=== PATIENT | female | born 2000 | race Caucasian/White ===

== ENCOUNTER 2022-07-01 12:43 | Inpatient (IN) ==
--- NOTE | 2022-07-01 13:49 | History & Physical Report ---
Date of Service July 01, 2022 Assessment & Plan (1) Post-dates : Plan: monitor History of Present Illness Chief Complaint: prolonged monitoring for variable deceleration in office. BPP 03/11 Primary Care Provider: Oscar Estrada DO 22 F P0000 at40.6 weeks seen in L&D after NST showed 1 variable and BPP 03/11. Allergies Allergy/AdvReac Type Severity Reaction Status Date / Time No Known Allergies Allergy Verified 03/26/22 19:45 Home Medications Medication Instructions Recorded Confirmed Type lorazepam 0.5 mg tablet (Ativan) 0.5 mg PO BID PRN anxiety #10 tabs 10/17/20 03/26/22 Rx escitalopram oxalate 10 mg tablet 10 mg PO DAILY 03/26/22 03/26/22 History iron,carbonyl 65 mg-vitamin C 125 1 tab PO TID 03/26/22 03/26/22 History mg tablet,delayed release (Vitron-C) Patient History Medical History Anxiety Third trimester Family History Other Family history non-contributory Social History Smoking Status: Never smoker Feels Safe at Home: Yes OB History primip TAPPER BIT History neg Review of Systems All systems reviewed & are unremarkable except as noted in HPI & below Physical Exam Constitutional: WD/WN, vitals as above Eyes: PERRL, conjunctivae normal, anicteric sclerae Neck: trachea midline, no thyromegaly Cardiovascular: RRR, no murmur, no edema Gastrointestinal (Abdomen): normal bowel sounds, soft, nontender, no hepatosplenomegaly Inspection/Auscultation: abdomen normal to inspection Skin: no rashes, warm and dry Neurologic: patellar DTR's 2+ bilat, sensation intact Psychiatric: A+Ox3, euthymic affect Genitourinary: normal external appearance OB Exam Abdomen: + fundal height and + vertex Manual OB Exam: + cervical dilation 1 cm, + cervical effacement 50% and + station high OB Exam Monitor Tracing: + external FHT monitor used, + external uterine monitor used, + category I and + normal FHT variability Results & Data ([place]) Vital Signs (Past 12 Hours) Vital Signs Pulse BP 07/01/22 13:03 85 105/72 Code Status & VTE Plan VTE Prophylaxis Plan VTE Prophylaxis will be ordered: No Monitoring External Monitor Cat 1 with irregular contractions
[2022-07-01] MEDS ORDERED: LIDOCAINE 1% LOCAL 20 ML VIAL INFIL PRN (16:53)
[2022-07-01] MEDS ORDERED: OXYTOCIN 30 UNITS/500 ML BAG IV PRN (16:53)
[2022-07-01 17:24] LABS: Hematocrit (blood only) 38.8 % (34.1-44.9); Hemoglobin 13.7 g/dl (12.0-16.0); Mean Corpuscular Hemoglobin 33.2 pg (25.0-34.0); Mean Corpuscular Hgb Conc 35.3 g/dL (32.0-36.0); Mean Corpuscular Volume 93.9 fL (80.0-100.0); Mean Platelet Volume 8.8 fL (9.4-12.3); Platelet Count 224 K/uL (130-400); RDW Coefficient of Variation 13.2 % (11.5-14.5); RDW Standard Deviation 45.9 fL (36.4-46.3); Red Blood Count 4.13 M/uL (3.93-5.22); White Blood Count 11.74 K/ul (4.8-10.8)
[2022-07-01] MEDS ORDERED: DINOPROSTONE 10 MG INSERT PV ONE (19:31)
--- NOTE | 2022-07-01 20:06 | Labor Progress Brief Note ---
Date of Service July 01, 2022 Assessment & Plan Admission and Anticipated Discharge Date Admission Date: July 01, 2022 Physical Exam Genitourinary: Manual OB Exam: + cervical dilation fingertip, + cervical effacement 50% and + station high OB Exam Monitor Tracing: + external FHT monitor used, + external uterine monitor used, + category I and + normal FHT variability Cervidil 10 mg placed vaginally to ripen cervix Results & Data ([facility]) Vital Signs (Past 12 Hours) Vital Signs Temp Pulse Resp BP 07/01/22 15:12 36.9 C 20 07/01/22 19:15 18 07/01/22 19:15 37.1 C 18 07/01/22 17:22 82 07/01/22 17:22 112/71 07/01/22 13:03 85 105/72
[2022-07-01] MEDS: ESCITALOPRAM OXALATE 10 MG TAB PO SCH (20:57)
[2022-07-02] MEDS ORDERED: ACETAMINOPHEN 325 MG TAB PO PRN (00:23)
[2022-07-02] MEDS ORDERED: ACETAMINOPHEN 325 MG TAB ONE (00:59)
[2022-07-02] MEDS ORDERED: BUTORPHANOL TARTRATE 1 MG/ML VIAL IV ONE (03:26)
[2022-07-02] MEDS: LACTATED RINGER'S 1,000 ML IV PRN ×2 (03:50→13:56)
[2022-07-02] MEDS ORDERED: OXYTOCIN 30 UNITS/500 ML BAG IV PRN (09:29)
[2022-07-02] MEDS ORDERED: ePHEDrine sulfate 50 MG/ML AMP ONE (09:34)
[2022-07-02] MEDS ORDERED: fentaNYL 2MCG/ML ROPIVACAINE 1.25MG/ML 100 ML BAG EPI ONE (09:35)
[2022-07-02] MEDS ORDERED: SODIUM CHLORIDE 0.9% INJ 10 ML VIAL ONE (09:35)
[2022-07-02] MEDS ORDERED: fentaNYL citrate 100 MCG/2 ML VIAL ONE ×2 (09:35→20:00)
[2022-07-02] MEDS ORDERED: BUPIVACAINE 0.25% 30 ML VIAL ONE (09:35)
[2022-07-02] MEDS ORDERED: LIDOCAINE 2%/EPINEPHRINE 1:200,000 20 ML SDV ONE ×2 (09:35→20:00)
--- NOTE | 2022-07-02 09:36 | Obstetrical Progress Note ---
Date of Service July 02, 2022 Assessment & Plan Admission and Anticipated Discharge Date Admission Date: July 01, 2022 Subjective Patient is seen and examined. She was admitted by Dr. Mesa yesterday for induction of labor for postdates and heart rate deceleration noted on NST. She has received Cervidil for cervical ripening which came out around 3:30 AM when she was [facility]. Amniotic fluid was clear initially but then noted to have light meconium. She has been feeling contractions regularly and they are getting painful. She desires epidural for pain. Reviewed her medical history, medications, [employer] history, both from office records and confirmed with her. She has a history of general anxiety disorder for which she takes Lexapro once a day, history of anemia for which she has taken IV iron therapy. Denies history of smoking, alcohol or drug use. Denies history of STDs including chlamydia gonorrhea herpes. Vital signs stable afebrile, Abdomen soft nontender, gravid [place] 7 to 8 pounds, Cervix is 3 cm dilated, 60% effaced, head at -2 station, heart rate category 1, [place] showing contractions every 3 to 4 minutes. Plan to monitor, epidural for pain, augment with low-dose Pitocin, All questions were answered. Results & Data ([facility]) Vital Signs (Past 12 Hours) Vital Signs Temp Pulse Resp BP 07/02/22 07:04 36.9 C 82 20 110/70 07/02/22 05:40 82 101/56 L 07/02/22 05:11 78 117/66 07/02/22 04:40 95 H 130/81 07/02/22 04:11 112 H 120/59 L 07/02/22 03:30 18 07/02/22 03:30 36.9 C 18 07/02/22 03:40 83 114/64 07/01/22 23:37 88 07/01/22 23:37 128/81
[2022-07-02] MEDS ORDERED: fentaNYL 2MCG/ML ROPIVACAINE 1.25MG/ML 100 ML BAG EPI PRN (09:51)
[2022-07-02] MEDS ORDERED: diphenhydrAMINE 50 MG/ML VIAL IV PRN ×2 (09:51→20:15)
[2022-07-02] MEDS ORDERED: NALBUPHINE HCL INJ 10 MG/ML AMP IV PRN ×2 (09:51→20:15)
[2022-07-02] MEDS ORDERED: ePHEDrine sulfate 50 MG/ML AMP IV PRN ×2 (09:51→20:15)
[2022-07-02] MEDS ORDERED: NALOXONE HCL 1 MG in SODIUM CHLORIDE 0.9% 1000ML 1,000 ML IV PRN ×2 (09:51→20:15)
[2022-07-02] MEDS ORDERED: ONDANSETRON INJ 2 MG/ML 2 ML VIAL IV PRN ×2 (09:51→20:15)
[2022-07-02] MEDS ORDERED: NALOXONE HCL 0.4 MG/1 ML VIAL/CARP IV PRN ×2 (09:51→20:15)
--- NOTE | 2022-07-02 09:55 | Anesthesiology Consultation ---
Date of Service July 02, 2022 Assessment & Plan Chart Review Chart Review: Patient NOT seen in Pre Admission Testing and Acceptable Risk for Labor Epidural Consults Requested none ASA ASA2 Proposed Anesthesia Anesthesia Type: Labor Epidural and CSE Risk / Benefits Reviewed With: PT / POA / Parent / Guardian, Accepts Plan and Informed Consent Obtained History Height/Weight Weight: 72.575 kg Allergies Allergy/AdvReac Type Severity Reaction Status Date / Time No Known Allergies Allergy Verified 07/01/22 17:37 Medications Home Medications Medication Instructions Recorded Confirmed Last Taken escitalopram oxalate 10 mg tablet 10 mg PO DAILY 03/26/22 07/01/22 06/30/22 21:00 prenat.vits,lane,xrj-nyqp-bqddg 1 tab PO DAILY 07/01/22 07/01/22 06/30/22 21:00 Active Medications Generic Name Dose Route Start Last Admin Trade Name Freq PRN Reason Stop Dose Admin Escitalopram Oxalate 10 mg 07/01/22 21:00 07/01/22 20:57 Escitalopram Oxalate 10 Mg Tab PO 07/31/22 20:59 10 mg 2100 RADHA Administration Lactated Ringer's 1,000 mls @ 125 mls/hr 07/01/22 16:53 07/02/22 04:20 Lr IV 07/03/22 16:52 125 mls/hr .Q8H PRN Infusion L&D Protocol Protocol NPO Date Last Intake of Fluids: 07/02/22 Time Last Intake of Fluids: 09:00 Date Last Intake of Solids: 07/02/22 Time Last Intake of Solids: 07:30 Past Medical History Medical History Anxiety Third trimester Exercise / Class Metabolic Activity II 4-5 Yardwork/Stairs/Walk up hill Past Family History Family History Other Family history non-contributory Past Anesthesia History No Hx of Anesthesia Complications and No Family Hx of Anesthesia Complications Social History Smoking Status: Never smoker Hx Alcohol Use: No Hx Substance Use: No substance use type: does not use Review of Systems no chest pain or sob Physical Exam Vital Signs Last Vital Signs Temp 36.9 C 07/02/22 07:04 Pulse 113 H 07/02/22 09:50 Resp 20 07/02/22 07:04 BP 110/70 11/29/22 07:04 Pulse Ox 89 L 07/02/22 09:50 SpO2 97 ENMT Mouth: no TMJ abnormality Thyromental Distance: > or= 3.5 Finger Breadths Mallampati Class: II Neck normal visual inspection Respiratory normal respiratory effort Auscultation: lungs clear to auscultation bilaterally Cardiovascular Rate/Rhythm: regular rate and regular rhythm Musculoskeletal Spine: normal cervical ROM Neurologic moves all extremities Psychiatric Orientation: alert and oriented x 3 Testing Laboratory Results 07/01/22 17:09
--- NOTE | 2022-07-02 16:34 | Obstetrical Progress Note ---
Date of Service July 02, 2022 Assessment & Plan Admission and Anticipated Discharge Date Admission Date: July 01, 2022 Subjective Late entry from 3:40 PM. Patient is reevaluated. She is comfortable, received epidural for pain. Vital signs stable afebrile, heart rate category 1, [place] contractions every 3 minutes. Pitocin is at 8 mIU/min., Cervix is 4 cm dilated, 70% effaced, head at -2 station, coned, IUPC is placed to adjust the dose of Pitocin. Continue to monitor closely. Results & Data ([facility]) Vital Signs (Past 12 Hours) Vital Signs Temp Pulse Resp BP Pulse Ox 07/02/22 16:32 103 H 125/81 07/02/22 16:29 93 H 96 07/02/22 16:24 96 H 99 07/02/22 16:19 107 H 99 07/02/22 16:17 77 111/60 07/02/22 16:14 90 99 07/02/22 16:09 88 98 07/02/22 16:04 81 98 07/02/22 16:02 86 113/61 07/02/22 15:59 95 H 99 07/02/22 15:54 88 99 07/02/22 15:49 84 98 07/02/22 15:48 81 122/74 07/02/22 15:44 78 99 07/02/22 15:39 84 99 07/02/22 15:34 87 99 07/02/22 15:32 91 H 111/60 07/02/22 15:29 87 99 07/02/22 15:24 92 H 94 07/02/22 15:19 88 89 L 07/02/22 15:17 95 H 116/65 07/02/22 15:14 93 H 98 07/02/22 15:00 37.1 C 07/02/22 15:09 92 H 100 07/02/22 15:04 88 99 07/02/22 15:03 91 H 119/61 07/02/22 14:59 90 95 07/02/22 14:54 92 H 98 07/02/22 14:49 89 99 07/02/22 14:48 91 H 116/68 07/02/22 14:44 95 H 100 07/02/22 14:39 77 97 07/02/22 14:34 74 98 07/02/22 14:32 83 108/60 07/02/22 14:29 76 99 07/02/22 14:24 73 98 07/02/22 14:19 72 98 07/02/22 14:17 79 109/59 L 07/02/22 14:14 73 100 07/02/22 14:09 87 92 07/02/22 14:04 88 98 07/02/22 14:02 88 119/72 07/02/22 13:59 83 99 07/02/22 13:54 92 H 99 07/02/22 13:49 84 97 07/02/22 13:48 83 112/68 07/02/22 13:44 78 99 07/02/22 13:39 86 100 07/02/22 13:34 88 98 07/02/22 13:32 77 112/61 07/02/22 13:29 84 98 07/02/22 13:24 89 98 07/02/22 13:19 83 99 07/02/22 13:17 88 107/60 07/02/22 13:14 79 98 07/02/22 13:09 89 96 07/02/22 13:04 77 97 07/02/22 11:00 20 07/02/22 11:00 36.8 C 20 07/02/22 09:12 20 07/02/22 09:12 36.9 C 20 07/02/22 13:02 36.9 C 85 20 105/61 07/02/22 12:59 71 99 07/02/22 12:54 81 96 07/02/22 12:49 84 98 07/02/22 12:48 85 114/70 07/02/22 12:44 89 97 07/02/22 12:39 80 97 07/02/22 12:34 90 98 07/02/22 12:32 91 H 122/57 L 07/02/22 12:29 82 97 07/02/22 12:24 87 98 07/02/22 12:19 83 97 07/02/22 12:17 80 121/58 L 07/02/22 12:14 87 97 07/02/22 12:09 90 98 07/02/22 12:04 88 97 07/02/22 12:03 86 111/62 07/02/22 11:59 95 H 99 07/02/22 11:54 90 98 07/02/22 11:49 92 H 99 07/02/22 11:47 89 117/68 07/02/22 11:44 88 98 07/02/22 11:39 87 98 07/02/22 11:34 98 H 99 07/02/22 11:33 99 H 113/63 07/02/22 11:29 84 98 07/02/22 11:24 95 H 97 07/02/22 11:19 72 97 07/02/22 11:18 82 111/71 07/02/22 11:14 88 97 07/02/22 11:09 74 97 07/02/22 11:04 77 97 07/02/22 11:02 72 105/62 07/02/22 10:59 82 97 07/02/22 10:54 74 98 07/02/22 10:49 76 98 07/02/22 10:44 98 07/02/22 10:44 72 07/02/22 10:44 73 109/67 07/02/22 10:40 76 114/66 07/02/22 10:39 77 97 07/02/22 10:34 99 07/02/22 10:34 83 07/02/22 10:34 75 107/68 07/02/22 10:29 82 111/73 99 07/02/22 10:26 84 85 L 07/02/22 10:24 87 98 07/02/22 10:25 82 112/69 07/02/22 10:19 84 100 07/02/22 10:18 93 H 127/82 07/02/22 10:16 130/82 07/02/22 10:14 94 H 128/77 99 07/02/22 10:12 91 H 134/71 07/02/22 10:10 92 H 141/83 H 07/02/22 10:09 96 H 99 07/02/22 10:08 107 H 145/85 H 07/02/22 10:04 108 H 99 07/02/22 09:59 129 H 100 07/02/22 09:54 101 H 100 07/02/22 09:49 95 H 97 07/02/22 09:50 113 H 89 L 07/02/22 07:04 36.9 C 82 20 110/70 07/02/22 05:40 82 101/56 L 07/02/22 05:11 78 117/66 07/02/22 04:40 95 H 130/81
--- NOTE | 2022-07-02 17:55 | Obstetrical Progress Note ---
Date of Service July 02, 2022 Assessment & Plan Admission and Anticipated Discharge Date Admission Date: July 01, 2022 Subjective Patient feels warm on her face and has [place] No change in vision/ N&V [place] snot feel contractions Temp: 99.5-100 F BP'S WNL VE; 4/ 80%/ -2, coned head, IUPC in, 220-270 MVU/10Min FHR, early decels with contractions with moderate variability Prolonged ROM, low grade temp Plan to start IV AB and change position for internal rotation Reevaluate in an hour Continue to monitor closely Results & Data ([facility]) Vital Signs (Past 12 Hours) Vital Signs Temp Pulse Resp BP Pulse Ox 07/02/22 17:49 108 H 99 07/02/22 17:48 37.5 C 95 H 128/67 07/02/22 17:44 99 H 94 07/02/22 17:42 37.8 C H 07/02/22 17:39 92 H 100 07/02/22 17:34 98 H 93 07/02/22 17:31 91 H 79 L 07/02/22 17:32 94 H 93/55 L 07/02/22 17:29 93 H 95 07/02/22 17:24 80 99 07/02/22 17:23 89 83 L 07/02/22 17:19 88 100 07/02/22 17:17 88 102/63 07/02/22 17:14 84 98 07/02/22 17:09 90 98 07/02/22 17:04 72 98 07/02/22 17:03 80 102/62 07/02/22 16:59 82 100 07/02/22 16:45 16 07/02/22 16:45 16 07/02/22 16:54 76 100 07/02/22 16:45 16 07/02/22 16:45 16 07/02/22 16:49 77 116/70 100 07/02/22 16:44 83 98 07/02/22 16:39 84 96 07/02/22 16:34 82 90 07/02/22 16:35 83 84 L 07/02/22 16:32 103 H 125/81 07/02/22 16:29 93 H 96 07/02/22 16:24 96 H 99 07/02/22 16:19 107 H 99 07/02/22 16:17 77 111/60 07/02/22 16:14 90 99 07/02/22 16:09 88 98 07/02/22 16:04 81 98 07/02/22 16:02 86 113/61 07/02/22 15:59 95 H 99 07/02/22 15:54 88 99 07/02/22 15:49 84 98 07/02/22 15:48 81 122/74 07/02/22 15:44 78 99 07/02/22 15:39 84 99 07/02/22 15:34 87 99 07/02/22 15:32 91 H 111/60 07/02/22 15:29 87 99 07/02/22 15:24 92 H 94 07/02/22 15:19 88 89 L 07/02/22 15:17 95 H 116/65 07/02/22 15:14 93 H 98 07/02/22 15:00 37.1 C 07/02/22 15:09 92 H 100 07/02/22 15:04 88 99 07/02/22 15:03 91 H 119/61 07/02/22 14:59 90 95 07/02/22 14:54 92 H 98 07/02/22 14:49 89 99 07/02/22 14:48 91 H 116/68 07/02/22 14:44 95 H 100 07/02/22 14:39 77 97 07/02/22 14:34 74 98 07/02/22 14:32 83 108/60 07/02/22 14:29 76 99 07/02/22 14:24 73 98 07/02/22 14:19 72 98 07/02/22 14:17 79 109/59 L 07/02/22 14:14 73 100 07/02/22 14:09 87 92 07/02/22 14:04 88 98 07/02/22 14:02 88 119/72 07/02/22 13:59 83 99 07/02/22 13:54 92 H 99 07/02/22 13:49 84 97 07/02/22 13:48 83 112/68 07/02/22 13:44 78 99 07/02/22 13:39 86 100 07/02/22 13:34 88 98 07/02/22 13:32 77 112/61 07/02/22 13:29 84 98 07/02/22 13:24 89 98 07/02/22 13:19 83 99 07/02/22 13:17 88 107/60 07/02/22 13:14 79 98 07/02/22 13:09 89 96 07/02/22 13:04 77 97 07/02/22 11:00 20 07/02/22 11:00 36.8 C 20 07/02/22 09:12 20 07/02/22 09:12 36.9 C 20 07/02/22 13:02 36.9 C 85 20 105/61 07/02/22 12:59 71 99 07/02/22 12:54 81 96 07/02/22 12:49 84 98 07/02/22 12:48 85 114/70 07/02/22 12:44 89 97 07/02/22 12:39 80 97 07/02/22 12:34 90 98 07/02/22 12:32 91 H 122/57 L 07/02/22 12:29 82 97 07/02/22 12:24 87 98 07/02/22 12:19 83 97 07/02/22 12:17 80 121/58 L 07/02/22 12:14 87 97 07/02/22 12:09 90 98 07/02/22 12:04 88 97 07/02/22 12:03 86 111/62 07/02/22 11:59 95 H 99 07/02/22 11:54 90 98 07/02/22 11:49 92 H 99 07/02/22 11:47 89 117/68 07/02/22 11:44 88 98 07/02/22 11:39 87 98 07/02/22 11:34 98 H 99 07/02/22 11:33 99 H 113/63 07/02/22 11:29 84 98 07/02/22 11:24 95 H 97 07/02/22 11:19 72 97 07/02/22 11:18 82 111/71 07/02/22 11:14 88 97 07/02/22 11:09 74 97 07/02/22 11:04 77 97 07/02/22 11:02 72 105/62 07/02/22 10:59 82 97 07/02/22 10:54 74 98 07/02/22 10:49 76 98 07/02/22 10:44 98 07/02/22 10:44 72 07/02/22 10:44 73 109/67 07/02/22 10:40 76 114/66 07/02/22 10:39 77 97 07/02/22 10:34 99 07/02/22 10:34 83 07/02/22 10:34 75 107/68 07/02/22 10:29 82 111/73 99 07/02/22 10:26 84 85 L 07/02/22 10:24 87 98 07/02/22 10:25 82 112/69 07/02/22 10:19 84 100 07/02/22 10:18 93 H 127/82 07/02/22 10:16 130/82 07/02/22 10:14 94 H 128/77 99 07/02/22 10:12 91 H 134/71 07/02/22 10:10 92 H 141/83 H 07/02/22 10:09 96 H 99 07/02/22 10:08 107 H 145/85 H 07/02/22 10:04 108 H 99 07/02/22 09:59 129 H 100 07/02/22 09:54 101 H 100 07/02/22 09:49 95 H 97 07/02/22 09:50 113 H 89 L 07/02/22 07:04 36.9 C 82 20 110/70
[2022-07-02] MEDS: ceFAZolin 2000MG 2,000 MG/15 ML SYR IV SCH (18:22)
[2022-07-02] MEDS: CLINDAMYCIN/D5W 900 MG/50 ML BAG IV SCH (18:23)
--- NOTE | 2022-07-02 19:44 | Obstetrical Progress Note ---
Date of Service July 02, 2022 Assessment & Plan Admission and Anticipated Discharge Date Admission Date: July 01, 2022 Subjective Patient is reevaluated. Headache is gone but she still feels feverish, warm on her face. Vital signs stable afebrile PER ORAL temperature. heart rate 140s, moderate variability, early decelerations with each contractions, some of them have late component, category 2, [place] contractions every 2 to 3 minutes, Cervix is unchanged, Discussed the findings, arrest of dilatation in active phase of labor, with low- grade temperature, category 2 strip and remote from delivery, Patient desires to proceed with primary . Patient understands C section is a major surgery, with risks including but not limited to bleeding , infection, injury to surrounding organs like bowels, bladder, ureters, adhesions, scarring, wound infection, blood cloths in legs/ lungs, longer recovery. All questions were answered. She signed an informed consent. Results & Data ([facility]) Vital Signs (Past 12 Hours) Vital Signs Temp Pulse Resp BP Pulse Ox O2 Del Method 07/02/22 19:25 36.7 C 18 07/02/22 19:25 Room Air 07/02/22 19:39 94 H 98 07/02/22 19:34 101 H 99 07/02/22 18:30 18 07/02/22 18:30 18 07/02/22 19:29 108 H 100 07/02/22 18:15 18 07/02/22 18:15 18 07/02/22 19:24 99 H 98 07/02/22 18:00 18 07/02/22 18:00 18 07/02/22 19:19 99 H 99 07/02/22 19:16 96 H 103/62 07/02/22 19:14 95 H 99 07/02/22 19:09 101 H 99 07/02/22 19:04 108 H 99 07/02/22 19:02 93 H 102/55 L 07/02/22 18:59 98 H 99 07/02/22 18:54 96 H 99 07/02/22 18:49 100 H 99 07/02/22 17:45 18 07/02/22 17:45 18 07/02/22 18:47 97 H 111/67 07/02/22 17:30 18 07/02/22 17:30 18 07/02/22 18:44 103 H 100 07/02/22 18:40 106 H 86 L 07/02/22 18:39 118 H 88 L 07/02/22 18:34 96 H 100 07/02/22 18:33 103 H 112/69 07/02/22 18:29 107 H 99 07/02/22 18:24 92 H 99 07/02/22 18:19 89 97 07/02/22 17:15 16 07/02/22 17:15 16 07/02/22 18:17 97 H 123/77 07/02/22 17:00 16 07/02/22 17:00 16 07/02/22 18:14 96 H 98 07/02/22 18:09 95 H 98 07/02/22 18:05 99 H 86 L 07/02/22 18:04 102 H 97 07/02/22 18:02 105 H 121/85 07/02/22 17:59 92 H 99 07/02/22 17:54 103 H 100 07/02/22 17:49 108 H 99 07/02/22 17:48 37.5 C 95 H 128/67 07/02/22 17:44 99 H 94 07/02/22 17:42 37.8 C H 07/02/22 17:39 92 H 100 07/02/22 17:34 98 H 93 07/02/22 17:31 91 H 79 L 07/02/22 17:32 94 H 93/55 L 07/02/22 17:29 93 H 95 07/02/22 17:24 80 99 07/02/22 17:23 89 83 L 07/02/22 17:19 88 100 07/02/22 17:17 88 102/63 07/02/22 17:14 84 98 07/02/22 17:09 90 98 07/02/22 17:04 72 98 07/02/22 17:03 80 102/62 07/02/22 16:59 82 100 07/02/22 16:45 16 07/02/22 16:45 16 07/02/22 16:54 76 100 07/02/22 16:45 16 07/02/22 16:45 16 07/02/22 16:49 77 116/70 100 07/02/22 16:44 83 98 07/02/22 16:39 84 96 07/02/22 16:34 82 90 07/02/22 16:35 83 84 L 07/02/22 16:32 103 H 125/81 07/02/22 16:29 93 H 96 07/02/22 16:24 96 H 99 07/02/22 16:19 107 H 99 07/02/22 16:17 77 111/60 07/02/22 16:14 90 99 07/02/22 16:09 88 98 07/02/22 16:04 81 98 07/02/22 16:02 86 113/61 07/02/22 15:59 95 H 99 07/02/22 15:54 88 99 07/02/22 15:49 84 98 07/02/22 15:48 81 122/74 07/02/22 15:44 78 99 07/02/22 15:39 84 99 07/02/22 15:34 87 99 07/02/22 15:32 91 H 111/60 07/02/22 15:29 87 99 07/02/22 15:24 92 H 94 07/02/22 15:19 88 89 L 07/02/22 15:17 95 H 116/65 07/02/22 15:14 93 H 98 07/02/22 15:00 37.1 C 07/02/22 15:09 92 H 100 07/02/22 15:04 88 99 07/02/22 15:03 91 H 119/61 07/02/22 14:59 90 95 07/02/22 14:54 92 H 98 07/02/22 14:49 89 99 07/02/22 14:48 91 H 116/68 07/02/22 14:44 95 H 100 07/02/22 14:39 77 97 07/02/22 14:34 74 98 07/02/22 14:32 83 108/60 07/02/22 14:29 76 99 07/02/22 14:24 73 98 07/02/22 14:19 72 98 07/02/22 14:17 79 109/59 L 07/02/22 14:14 73 100 07/02/22 14:09 87 92 07/02/22 14:04 88 98 07/02/22 14:02 88 119/72 07/02/22 13:59 83 99 07/02/22 13:54 92 H 99 07/02/22 13:49 84 97 07/02/22 13:48 83 112/68 07/02/22 13:44 78 99 07/02/22 13:39 86 100 07/02/22 13:34 88 98 07/02/22 13:32 77 112/61 07/02/22 13:29 84 98 07/02/22 13:24 89 98 07/02/22 13:19 83 99 07/02/22 13:17 88 107/60 07/02/22 13:14 79 98 07/02/22 13:09 89 96 07/02/22 13:04 77 97 07/02/22 11:00 20 07/02/22 11:00 36.8 C 20 07/02/22 09:12 20 07/02/22 09:12 36.9 C 20 07/02/22 13:02 36.9 C 85 20 105/61 07/02/22 12:59 71 99 07/02/22 12:54 81 96 07/02/22 12:49 84 98 07/02/22 12:48 85 114/70 07/02/22 12:44 89 97 07/02/22 12:39 80 97 07/02/22 12:34 90 98 07/02/22 12:32 91 H 122/57 L 07/02/22 12:29 82 97 07/02/22 12:24 87 98 07/02/22 12:19 83 97 07/02/22 12:17 80 121/58 L 07/02/22 12:14 87 97 07/02/22 12:09 90 98 07/02/22 12:04 88 97 07/02/22 12:03 86 111/62 07/02/22 11:59 95 H 99 07/02/22 11:54 90 98 07/02/22 11:49 92 H 99 07/02/22 11:47 89 117/68 07/02/22 11:44 88 98 07/02/22 11:39 87 98 07/02/22 11:34 98 H 99 07/02/22 11:33 99 H 113/63 07/02/22 11:29 84 98 07/02/22 11:24 95 H 97 07/02/22 11:19 72 97 07/02/22 11:18 82 111/71 07/02/22 11:14 88 97 07/02/22 11:09 74 97 07/02/22 11:04 77 97 07/02/22 11:02 72 105/62 07/02/22 10:59 82 97 07/02/22 10:54 74 98 07/02/22 10:49 76 98 07/02/22 10:44 98 07/02/22 10:44 72 07/02/22 10:44 73 109/67 07/02/22 10:40 76 114/66 07/02/22 10:39 77 97 07/02/22 10:34 99 07/02/22 10:34 83 07/02/22 10:34 75 107/68 07/02/22 10:29 82 111/73 99 07/02/22 10:26 84 85 L 07/02/22 10:24 87 98 07/02/22 10:25 82 112/69 07/02/22 10:19 84 100 07/02/22 10:18 93 H 127/82 07/02/22 10:16 130/82 07/02/22 10:14 94 H 128/77 99 07/02/22 10:12 91 H 134/71 07/02/22 10:10 92 H 141/83 H 07/02/22 10:09 96 H 99 07/02/22 10:08 107 H 145/85 H 07/02/22 10:04 108 H 99 07/02/22 09:59 129 H 100 07/02/22 09:54 101 H 100 07/02/22 09:49 95 H 97 07/02/22 09:50 113 H 89 L
[2022-07-02] MEDS ORDERED: LACTATED RINGER'S 1,000 ML IV SCH ×3 (19:45→22:00)
[2022-07-02 20:09] LABS: Basophils # (auto) 0.03 K/uL (0-0.2); Basophils % (auto) 0.2 %; Hematocrit (blood only) 35.3 % (34.1-44.9); Hemoglobin 12.5 g/dl (12.0-16.0); Immature Granulocytes # (auto) 0.09 K/uL (0.00-0.02); Immature Granulocytes % (auto) 0.6 %; Lymphocytes # (auto) 1.85 K/uL (1.2-3.4); Lymphocytes % (auto) 12.1 %; Mean Corpuscular Hemoglobin 33.3 pg (25.0-34.0); Mean Corpuscular Hgb Conc 35.4 g/dL (32.0-36.0); Mean Corpuscular Volume 94.1 fL (80.0-100.0); Mean Platelet Volume 8.8 fL (9.4-12.3); Monocytes % (auto) 7.2 %; Neutrophils # (auto) 12.27 K/uL (1.4-6.5); Neutrophils % (auto) 79.9 %; Platelet Count 190 K/uL (130-400); RDW Coefficient of Variation 13.1 % (11.5-14.5); RDW Standard Deviation 45.4 fL (36.4-46.3); Red Blood Count 3.75 M/uL (3.93-5.22); White Blood Count 15.34 K/ul (4.8-10.8)
[2022-07-02] MEDS ORDERED: DC INTRASPINAL MORPHINE SCH (20:15)
[2022-07-02] MEDS ORDERED: MoRPHine SULFATE PF 1 MG/ML 10 ML AMP/VIAL EPI ONE (20:15)
[2022-07-02] MEDS ORDERED: NALOXONE HCL 0.08 MG in SYRINGE 1.8 ML IV PRN (20:15)
[2022-07-02] MEDS ORDERED: HYDROmorphone INJ 0.5 MG/0.5 ML SYR IV PRN (20:15)
[2022-07-02] MEDS ORDERED: LACTATED RINGER'S 500 ML IV PRN (20:15)
[2022-07-02] MEDS ORDERED: SODIUM CHLORIDE 0.9% 1000ML 1,000 ML IV SCH (20:15)
[2022-07-02] MEDS ORDERED: ceFAZolin 2000MG 2,000 MG/15 ML SYR IV SCH ×2 (20:15)
[2022-07-02] MEDS ORDERED: NO NARCOTICS OR SEDATIVES SCH (20:15)
[2022-07-02 20:29] LABS: Alanine Aminotransferase 8 U/L (7-52); Albumin Level 3.3 gm/dl (3.4-5.0); Alkaline Phosphatase 164 U/L (34-104); Anion Gap 11 (3-11); Aspartate Aminotransferase 13 U/L (13-39); BUN Creatinine Ratio 20.8 (10-20); Bilirubin,Total 0.4 mg/dl (0.2-1.0); Blood Urea Nitrogen 11 mg/dl (6-23); Calcium 8.9 mg/dl (8.5-10.1); Carbon Dioxide 19 mmol/L (21-32); Chloride 104 mmol/L (98-107); Est GFR (African American) > 150.0 ml/min; Est GFR (Non-African American) 135.7 ml/min; Globulin 3.3 gm/dl (2.5-4.0); Glucose 70 mg/dl (70-99(Fasting)); Potassium 3.6 mmol/L (3.5-5.1); Sodium 134 mmol/L (136-145); Total Protein 6.6 gm/dl (6.0-8.3)
[2022-07-02] MEDS ORDERED: CITRIC ACID/SODIUM CITRATE 15 ML UDC PO SCH (20:30)
[2022-07-02] MEDS ORDERED: PHENYLEPHRINE 100MCG/ML 5ML SYR ONE (20:54)
[2022-07-02] MEDS ORDERED: ONDANSETRON INJ 2 MG/ML 2 ML VIAL ONE (20:54)
[2022-07-02] MEDS ORDERED: OXYTOCIN 10 UNITS/ML 10ML VIAL ONE ×2 (20:55→21:06)
[2022-07-02] MEDS ORDERED: MoRPHine SULFATE PF 1 MG/ML 10 ML AMP/VIAL ONE (20:55)
[2022-07-02] MEDS ORDERED: DIPHTHERIA/TETANUS/PERTUSSIS 0.5 ML SYR/VIAL IM ONE (21:46)
[2022-07-02] MEDS ORDERED: BENZOCAINE 20% AER SPR 82.5 GM CAN EXT PRN (21:46)
[2022-07-02] MEDS ORDERED: MEASLES, MUMPS & RUBELLA VIRUS VIAL SQ ONE (21:46)
[2022-07-02] MEDS ORDERED: MAGNESIUM HYDROXIDE SUSP 30 ML UDC PO PRN (21:46)
[2022-07-02] MEDS ORDERED: HYDROCORTISONE ACETATE 25 MG SUPP PR PRN (21:46)
[2022-07-02] MEDS ORDERED: SENNA 8.6 MG TAB PO PRN (21:46)
--- NOTE | 2022-07-02 21:52 | Post Operative Brief Note ---
Immediate Post Op Note v1 Date of Surgery July 02, 2022 Pre & Post Diagnosis Operation Date: 07/02/22 20:00 Pre-Op Diagnosis: 1. Arrest of dilation in active stage of labor 2. Category 2 FHR tracing Post-Op Diagnosis: same as preop I identified the patient and participated in the time-out.: Yes Procedure Operation Date: 07/02/22 20:00 Actual Procedures p Section in LD for delivery of live female at 210 - Taya Walker MD Surgeon Taya Walker MD Chicken Raiser Dr. López Estimated Blood Loss 600 Findings Consistent with Post-Op Diagnosis Drains [place] Catheter Anesthesia Type Labor Epidural Complications none
--- NOTE | 2022-07-02 23:25 | Anesthesiology Progress Note ---
Date of Service July 02, 2022 Anesthesia Post Procedure Vital Signs Vital Signs: Temp Pulse Resp BP Pulse Ox O2 Del Method 07/02/22 23:05 18 07/02/22 22:55 18 07/02/22 22:45 18 07/02/22 22:35 18 07/02/22 22:25 100 H 18 95 07/02/22 22:15 18 07/02/22 22:05 37.2 C 18 07/02/22 19:25 36.7 C 18 07/02/22 19:25 Room Air 07/02/22 23:22 91 H 97 07/02/22 23:23 92 H 112/66 07/02/22 23:17 89 96 07/02/22 23:13 91 H 115/70 07/02/22 23:12 85 95 07/02/22 23:07 93 H 97 07/02/22 23:02 101 H 97 07/02/22 23:03 96 H 115/67 07/02/22 22:57 98 H 96 07/02/22 22:52 83 94 07/02/22 22:53 87 117/64 07/02/22 22:47 87 95 07/02/22 22:43 81 107/56 L 07/02/22 22:42 84 94 07/02/22 22:37 87 94 07/02/22 22:32 99 H 95 07/02/22 22:33 86 103/57 L 07/02/22 22:27 100 H 95 07/02/22 22:23 95 H 105/55 L 07/02/22 22:22 88 95 07/02/22 22:17 93 H 95 07/02/22 22:13 97 H 159/67 H 07/02/22 22:12 102 H 95 07/02/22 22:07 114 H 97 07/02/22 22:06 109 H 93 07/02/22 22:02 102 H 95 07/02/22 22:03 105 H 92/50 L 07/02/22 22:00 37.2 C 103 H 20 87/45 L 07/02/22 21:59 109 H 93 07/02/22 21:57 118 H 96 07/02/22 20:30 20 07/02/22 20:30 20 07/02/22 19:25 18 07/02/22 19:25 36.7 C 18 07/02/22 19:30 18 07/02/22 19:30 18 07/02/22 20:44 114 H 98 07/02/22 20:39 122 H 99 07/02/22 20:34 109 H 97 07/02/22 20:31 116 H 117/74 07/02/22 20:29 112 H 99 07/02/22 20:24 114 H 98 07/02/22 20:19 114 H 98 07/02/22 20:17 111 H 86 L 07/02/22 20:16 87 117/68 07/02/22 20:14 117 H 98 07/02/22 20:09 111 H 99 07/02/22 20:04 99 H 98 07/02/22 20:02 89 109/64 07/02/22 19:59 106 H 99 07/02/22 19:54 96 H 98 07/02/22 19:49 98 H 98 07/02/22 19:47 93 H 121/75 07/02/22 19:44 104 H 100 07/02/22 19:39 94 H 98 07/02/22 19:34 101 H 99 07/02/22 18:30 18 07/02/22 18:30 18 07/02/22 19:29 108 H 100 07/02/22 18:15 18 07/02/22 18:15 18 07/02/22 19:24 99 H 98 07/02/22 18:00 18 07/02/22 18:00 18 07/02/22 19:19 99 H 99 07/02/22 19:16 96 H 103/62 07/02/22 19:14 95 H 99 07/02/22 19:09 101 H 99 07/02/22 19:04 108 H 99 07/02/22 19:02 93 H 102/55 L 07/02/22 18:59 98 H 99 07/02/22 18:54 96 H 99 07/02/22 18:49 100 H 99 07/02/22 17:45 18 07/02/22 17:45 18 07/02/22 18:47 97 H 111/67 07/02/22 17:30 18 07/02/22 17:30 18 07/02/22 18:44 103 H 100 07/02/22 18:40 106 H 86 L 07/02/22 18:39 118 H 88 L 07/02/22 18:34 96 H 100 07/02/22 18:33 103 H 112/69 07/02/22 18:29 107 H 99 07/02/22 18:24 92 H 99 07/02/22 18:19 89 97 07/02/22 17:15 16 07/02/22 17:15 16 07/02/22 18:17 97 H 123/77 07/02/22 17:00 16 07/02/22 17:00 16 07/02/22 18:14 96 H 98 07/02/22 18:09 95 H 98 07/02/22 18:05 99 H 86 L 07/02/22 18:04 102 H 97 07/02/22 18:02 105 H 121/85 07/02/22 17:59 92 H 99 07/02/22 17:54 103 H 100 07/02/22 17:49 108 H 99 07/02/22 17:48 37.5 C 95 H 128/67 07/02/22 17:44 99 H 94 07/02/22 17:42 37.8 C H 07/02/22 17:39 92 H 100 07/02/22 17:34 98 H 93 07/02/22 17:31 91 H 79 L 07/02/22 17:32 94 H 93/55 L 07/02/22 17:29 93 H 95 07/02/22 17:24 80 99 07/02/22 17:23 89 83 L 07/02/22 17:19 88 100 07/02/22 17:17 88 102/63 07/02/22 17:14 84 98 07/02/22 17:09 90 98 07/02/22 17:04 72 98 07/02/22 17:03 80 102/62 07/02/22 16:59 82 100 07/02/22 16:45 16 07/02/22 16:45 16 07/02/22 16:54 76 100 07/02/22 16:45 16 07/02/22 16:45 16 07/02/22 16:49 77 116/70 100 07/02/22 16:44 83 98 07/02/22 16:39 84 96 07/02/22 16:34 82 90 07/02/22 16:35 83 84 L 07/02/22 16:32 103 H 125/81 07/02/22 16:29 93 H 96 07/02/22 16:24 96 H 99 07/02/22 16:19 107 H 99 07/02/22 16:17 77 111/60 07/02/22 16:14 90 99 07/02/22 16:09 88 98 07/02/22 16:04 81 98 07/02/22 16:02 86 113/61 07/02/22 15:59 95 H 99 07/02/22 15:54 88 99 07/02/22 15:49 84 98 07/02/22 15:48 81 122/74 07/02/22 15:44 78 99 07/02/22 15:39 84 99 07/02/22 15:34 87 99 07/02/22 15:32 91 H 111/60 07/02/22 15:29 87 99 07/02/22 15:24 92 H 94 07/02/22 15:19 88 89 L 07/02/22 15:17 95 H 116/65 07/02/22 15:14 93 H 98 07/02/22 15:00 37.1 C 07/02/22 15:09 92 H 100 07/02/22 15:04 88 99 07/02/22 15:03 91 H 119/61 07/02/22 14:59 90 95 07/02/22 14:54 92 H 98 07/02/22 14:49 89 99 07/02/22 14:48 91 H 116/68 07/02/22 14:44 95 H 100 07/02/22 14:39 77 97 07/02/22 14:34 74 98 07/02/22 14:32 83 108/60 07/02/22 14:29 76 99 07/02/22 14:24 73 98 07/02/22 14:19 72 98 07/02/22 14:17 79 109/59 L 07/02/22 14:14 73 100 07/02/22 14:09 87 92 07/02/22 14:04 88 98 07/02/22 14:02 88 119/72 07/02/22 13:59 83 99 07/02/22 13:54 92 H 99 07/02/22 13:49 84 97 07/02/22 13:48 83 112/68 07/02/22 13:44 78 99 07/02/22 13:39 86 100 07/02/22 13:34 88 98 07/02/22 13:32 77 112/61 07/02/22 13:29 84 98 07/02/22 13:24 89 98 07/02/22 13:19 83 99 07/02/22 13:17 88 107/60 07/02/22 13:14 79 98 07/02/22 13:09 89 96 07/02/22 13:04 77 97 07/02/22 11:00 20 07/02/22 11:00 36.8 C 20 07/02/22 09:12 20 07/02/22 09:12 36.9 C 20 07/02/22 13:02 36.9 C 85 20 105/61 07/02/22 12:59 71 99 07/02/22 12:54 81 96 07/02/22 12:49 84 98 07/02/22 12:48 85 114/70 07/02/22 12:44 89 97 07/02/22 12:39 80 97 07/02/22 12:34 90 98 07/02/22 12:32 91 H 122/57 L 07/02/22 12:29 82 97 07/02/22 12:24 87 98 07/02/22 12:19 83 97 07/02/22 12:17 80 121/58 L 07/02/22 12:14 87 97 07/02/22 12:09 90 98 07/02/22 12:04 88 97 07/02/22 12:03 86 111/62 07/02/22 11:59 95 H 99 07/02/22 11:54 90 98 07/02/22 11:49 92 H 99 07/02/22 11:47 89 117/68 07/02/22 11:44 88 98 07/02/22 11:39 87 98 07/02/22 11:34 98 H 99 07/02/22 11:33 99 H 113/63 07/02/22 11:29 84 98 07/02/22 11:24 95 H 97 07/02/22 11:19 72 97 07/02/22 11:18 82 111/71 07/02/22 11:14 88 97 07/02/22 11:09 74 97 07/02/22 11:04 77 97 07/02/22 11:02 72 105/62 07/02/22 10:59 82 97 07/02/22 10:54 74 98 07/02/22 10:49 76 98 07/02/22 10:44 98 07/02/22 10:44 72 07/02/22 10:44 73 109/67 07/02/22 10:40 76 114/66 07/02/22 10:39 77 97 07/02/22 10:34 99 07/02/22 10:34 83 07/02/22 10:34 75 107/68 07/02/22 10:29 82 111/73 99 07/02/22 10:26 84 85 L 07/02/22 10:24 87 98 07/02/22 10:25 82 112/69 07/02/22 10:19 84 100 07/02/22 10:18 93 H 127/82 07/02/22 10:16 130/82 07/02/22 10:14 94 H 128/77 99 07/02/22 10:12 91 H 134/71 07/02/22 10:10 92 H 141/83 H 07/02/22 10:09 96 H 99 07/02/22 10:08 107 H 145/85 H 07/02/22 10:04 108 H 99 07/02/22 09:59 129 H 100 07/02/22 09:54 101 H 100 07/02/22 09:49 95 H 97 07/02/22 09:50 113 H 89 L 07/02/22 07:04 36.9 C 82 20 110/70 07/02/22 05:40 82 101/56 L 07/02/22 05:11 78 117/66 07/02/22 04:40 95 H 130/81 07/02/22 04:11 112 H 120/59 L 07/02/22 03:30 18 07/02/22 03:30 36.9 C 18 07/02/22 03:40 83 114/64 07/01/22 23:37 88 07/01/22 23:37 128/81 Pain Intensity Bilateral Abdomen: Pain Intensity: 3 Transfer of Care Handoff Completed per policy Notes Mental Status: alert / awake / arousable Patient Amnestic to Procedure: Yes Nausea / Vomiting: adequately controlled Pain: adequately controlled Airway Patency, RR, SpO2: stable & adequate BP & HR: stable & adequate Hydration State: stable & adequate Neuraxial Anesthesia: was administered and sensory block is resolving Anesthetic Complications: no major complications apparent and Pt Satisfied with anesthetic care
[2022-07-02] MEDS: OXYTOCIN 20 UNITS in LACTATED RINGER'S 1,000 ML IV SCH (23:31)
[2022-07-02] MEDS: ESCITALOPRAM OXALATE 10 MG TAB PO SCH (23:34)
[2022-07-02] MEDS ORDERED: Nursing to Pharmacy Communication SCH (23:45)
[2022-07-03] MEDS: KETOROLAC 30 MG/ML VIAL IV PRN ×2 (00:33→11:34)
--- NOTE | 2022-07-03 01:38 | Operative Report (OR) ---
DATE OF SURGERY: 07/02/2022. PREOPERATIVE DIAGNOSES: The patient is a 22-year-old G1, P0 at 41 weeks of gestation, induction of labor for nonreactive NST since yesterday, arrest of dilatation in active phase of labor, category 2 strip, remote from delivery. POSTOPERATIVE DIAGNOSES: The patient is a 22-year-old G1, P0 at 41 weeks of gestation, induction of labor for nonreactive NST since yesterday, arrest of dilatation in active phase of labor, category 2 strip, remote from delivery and body cord. PROCEDURE: Primary low transverse with Pfannenstiel skin incision. SURGEON: Taya Walker MD [place]EDDING DECORATOR: Asuncion López MD ESTIMATED BLOOD LOSS: 600 mL. DRAINS: Lynn catheter drained 100 mL of clear urine. ANESTHESIA: Labor epidural. ANESTHESIOLOGIST: Dr. Mcdonald. FINDINGS: Baby was a viable female delivered at 9:09 p.m. in cephalic presentation, Apgars were 6/9, weight is 3377 gr. Maternal findings, normal fallopian tubes, ovaries, and uterus. COMPLICATIONS: None. DESCRIPTION OF PROCEDURE: The patient was taken to the operating room where epidural anesthesia was found to be adequate. She was placed in dorsal supine position with a leftward tilt. She was prepared and draped in the usual sterile fashion. A Pfannenstiel skin incision was made and carried through to the underlying layer of fascia with the Bovie. Fascia was incised in the midline and incision was extended laterally with the help of Meza scissors. Upper aspect of the fascial incision was grasped with 2 Ashley clamps, elevated, and underlying rectus muscles were dissected off sharply with Meza scissors. Same thing was done on the lower aspect of the fascial incision. Rectus muscles were in the midline and peritoneum was identified and entered bluntly with fingers. Peritoneal incision was extended superiorly and inferiorly with good visualization of the bladder. A bladder blade was inserted. Vesicouterine peritoneum was identified, grasped with pickups, entered sharply with Metzenbaum scissors. Bladder flap was created digitally and bladder blade was reinserted. Lower uterine segment was incised in transverse fashion. Incision was extended laterally with bandage scissors. Baby's head was delivered without difficulty. Shoulders were delivered with minimal traction and there was a cord around the lower abdomen and the leg. it was reduced. The mouth and nose were suctioned. Cord was clamped x2 and cut and the baby was handed off to the waiting pediatric team with Dr. Rowe. Placenta was delivered manually as intact and complete. Uterus was exteriorized and cleared of all clots and debris. Uterine incision was repaired with 0 Vicryl in a running locked fashion. A second imbricating layer was placed with another Vicryl in a running locked fashion and there was minimal oozing on the middle, which was controlled with [id number] stitches with 0 Vicryl x2. Incision was hemostatic. Cul-de-sac was irrigated with warm normal saline and suctioned. It was found to be normal. Normal fallopian tubes and ovaries were noted. Uterus was returned to the abdomen. Pelvis was irrigated with warm normal saline and suctioned. Uterine incision was checked to be again hemostatic. Parietal peritoneum was reapproximated with 3-0 Vicryl in a running fashion. Rectus muscles were brought together with the same suture in a running fashion. Excellent hemostasis was achieved. Rectus fascia was reapproximated with 0 Vicryl in a running fashion starting from both corners meeting in the midline. Subcuticular fat tissue was closed with 3-0 Vicryl in a running fashion. The skin was closed with 4-0 Monocryl in a subcuticular fashion. The patient tolerated the procedure well. Sponge, needle, and instrument count was correct x3. No complications happened. I was and Dr. López was present during whole surgery. My contract administrative assistant, Dr. López, was needed for retraction, aid during delivery of infant, and hemostasis during surgery. Job ID: [id number] [facility]
[2022-07-03] MEDS: CLINDAMYCIN/D5W 900 MG/50 ML BAG IV SCH ×3 (01:56→18:10)
[2022-07-03] MEDS: ceFAZolin 2000MG 2,000 MG/15 ML SYR IV SCH ×3 (04:07→20:17)
[2022-07-03] MEDS ORDERED: ceFAZolin 2000MG 2,000 MG/15 ML SYR IV SCH ×2 (06:00)
[2022-07-03] MEDS ORDERED: CITRIC ACID/SODIUM CITRATE 15 ML UDC PO SCH (06:00)
[2022-07-03 06:28] LABS: Basophils # (auto) 0.03 K/uL (0-0.2); Basophils % (auto) 0.2 %; Hematocrit (blood only) 31.8 % (34.1-44.9); Hemoglobin 11.3 g/dl (12.0-16.0); Immature Granulocytes # (auto) 0.11 K/uL (0.00-0.02); Immature Granulocytes % (auto) 0.8 %; Lymphocytes # (auto) 1.75 K/uL (1.2-3.4); Lymphocytes % (auto) 13.1 %; Mean Corpuscular Hemoglobin 33.3 pg (25.0-34.0); Mean Corpuscular Hgb Conc 35.5 g/dL (32.0-36.0); Mean Corpuscular Volume 93.8 fL (80.0-100.0); Mean Platelet Volume 8.7 fL (9.4-12.3); Monocytes # (auto) 0.79 K/uL (0.24-0.82); Monocytes % (auto) 5.9 %; Neutrophils # (auto) 10.67 K/uL (1.4-6.5); Platelet Count 167 K/uL (130-400); RDW Coefficient of Variation 12.6 % (11.5-14.5); RDW Standard Deviation 43.7 fL (36.4-46.3); Red Blood Count 3.39 M/uL (3.93-5.22); White Blood Count 13.35 K/ul (4.8-10.8)
[2022-07-03] MEDS: DOCUSATE SODIUM 100 MG CAP PO SCH ×2 (08:04→20:48)
[2022-07-03] MEDS: SIMETHICONE 80 MG CHEW PO SCH ×4 (08:04→20:47)
[2022-07-03] MEDS: FERROUS SULFATE 325 MG TAB PO SCH (08:05)
[2022-07-03] MEDS: PRENATAL VITAMIN 1 TAB PO SCH (08:06)
[2022-07-03] MEDS: OXYTOCIN 20 UNITS in LACTATED RINGER'S 1,000 ML IV SCH (08:42)
[2022-07-03] MEDS ORDERED: diphenhydrAMINE Capsule 25 MG CAP PO PRN (14:17)
[2022-07-03] MEDS ORDERED: diphenhydrAMINE 50 MG/ML VIAL IV PRN (14:17)
[2022-07-03] MEDS ORDERED: PROMETHAZINE HCL 25 MG in SODIUM CHLORIDE 0.9% 50 ML IV PRN (14:17)
[2022-07-03] MEDS ORDERED: ONDANSETRON INJ 2 MG/ML 2 ML VIAL IV PRN (14:17)
[2022-07-03] MEDS ORDERED: KETOROLAC 30 MG/ML VIAL IV PRN (14:17)
[2022-07-03] MEDS ORDERED: MEPERIDINE HCL 50 MG/ML CARP IV PRN (14:17)
[2022-07-03] MEDS: oxyCODONE/ACETAMINOPHEN 5mg/325mg TAB PO PRN ×2 (17:15→20:49)
[2022-07-03] MEDS ORDERED: bisacodyL 5 MG TABEC PO SCH (20:00)
[2022-07-03] MEDS: IBUPROFEN 600 MG TAB PO PRN (20:47)
[2022-07-03] MEDS: ESCITALOPRAM OXALATE 10 MG TAB PO SCH (20:47)
[2022-07-04] MEDS ORDERED: bisacodyL 10 MG SUPP PR PRN
[2022-07-04] MEDS: oxyCODONE/ACETAMINOPHEN 5mg/325mg TAB PO PRN ×5 (00:21→21:38)
[2022-07-04] MEDS: IBUPROFEN 600 MG TAB PO PRN ×5 (00:22→21:39)
[2022-07-04] MEDS: CLINDAMYCIN/D5W 900 MG/50 ML BAG IV SCH (02:01)
[2022-07-04] MEDS: ceFAZolin 2000MG 2,000 MG/15 ML SYR IV SCH (04:21)
[2022-07-04 06:51] LABS: Hematocrit (blood only) 29.2 % (34.1-44.9); Hemoglobin 10.2 g/dl (12.0-16.0)
[2022-07-04] MEDS: DOCUSATE SODIUM 100 MG CAP PO SCH ×2 (09:14→21:38)
[2022-07-04] MEDS: PRENATAL VITAMIN 1 TAB PO SCH (09:14)
[2022-07-04] MEDS: FERROUS SULFATE 325 MG TAB PO SCH (09:14)
[2022-07-04] MEDS: SIMETHICONE 80 MG CHEW PO SCH ×4 (09:14→21:38)
--- NOTE | 2022-07-04 09:31 | Obstetrical Progress Note ---
Date of Service July 04, 2022 Assessment & Plan Admission and Anticipated Discharge Date Admission Date: July 01, 2022 Subjective Patient is seen and examined. She feels well, no complaints. Pain is under control with oral meds. Ambulating without dizziness Voiding without difficulty Tolerating regular diet with out N&V Flatus + BM NEG Bleeding is minimal No fever/ chills/ CP/ SOB/ N&V/ Leg pain Breast feeding without problems Vital Signs Temp Pulse Resp BP Pulse Ox O2 Del Method 07/04/22 04:15 36.5 C 80 18 105/64 98 Room Air 07/04/22 00:30 36.9 C 82 18 107/70 97 Room Air Lab Results 07/01/22 07/01/22 07/02/22 Range/Units 16:50 17:09 19:59 WBC 11.74 H (4.8-10.8) K/ul RBC 4.13 (3.93-5.22) M/uL Hgb 13.7 (12.0-16.0) g/dl Hct 38.8 (34.1-44.9) % MCV 93.9 (80.0-100.0) fL MCH 33.2 (25.0-34.0) pg MCHC 35.3 (32.0-36.0) g/dL RDW Std Deviation 45.9 (36.4-46.3) fL RDW Coeff of Gareth 13.2 (11.5-14.5) % Plt Count 224 (130-400) K/uL MPV 8.8 L (9.4-12.3) fL Immature Gran % (Auto) % Neut % (Auto) % Lymph % (Auto) % Hooker % (Auto) % Eos % (Auto) % Baso % (Auto) % Neut # (Auto) (1.4-6.5) K/uL Lymph # (Auto) (1.2-3.4) K/uL Hooker # (Auto) (0.24-0.82) K/uL Eos # (Auto) (0-0.50) K/uL Baso # (Auto) (0-0.2) K/uL Immature Gran # (Auto) (0.00-0.02) K/uL Sodium (136-145) mmol/L Potassium (3.5-5.1) mmol/L Chloride (98-107) mmol/L Carbon Dioxide (21-32) mmol/L Anion Gap (3-11) BUN (6-23) mg/dl Creatinine (0.6-1.2) mg/dl Est Cr Clr Drug Dosing Est GFR ( Amer) ml/min Est GFR (Non-Af Amer) ml/min BUN/Creatinine Ratio (10-20) Glucose (70-99(Fasting)) mg/dl Lactate (0.4-2.0) mmol/L Calcium (8.5-10.1) mg/dl Total Bilirubin (0.2-1.0) mg/dl AST (13-39) U/L ALT (7-52) U/L Alkaline Phosphatase (34-104) U/L Total Protein (6.0-8.3) gm/dl Albumin (3.4-5.0) gm/dl Globulin (2.5-4.0) gm/dl Albumin/Globulin Ratio (0.9-2) SARS-CoV-2, RNA, NAAT NEGATIVE (NEGATIVE) Blood Type A Positive Antibody Screen NEGATIVE 07/02/22 07/02/22 07/02/22 Range/Units 19:59 19:59 19:59 WBC 15.34 H (4.8-10.8) K/ul RBC 3.75 L (3.93-5.22) M/uL Hgb 12.5 (12.0-16.0) g/dl Hct 35.3 (34.1-44.9) % MCV 94.1 (80.0-100.0) fL MCH 33.3 (25.0-34.0) pg MCHC 35.4 (32.0-36.0) g/dL RDW Std Deviation 45.4 (36.4-46.3) fL RDW Coeff of Gareth 13.1 (11.5-14.5) % Plt Count 190 (130-400) K/uL MPV 8.8 L (9.4-12.3) fL Immature Gran % (Auto) 0.6 % Neut % (Auto) 79.9 % Lymph % (Auto) 12.1 % Hooker % (Auto) 7.2 % Eos % (Auto) 0.0 % Baso % (Auto) 0.2 % Neut # (Auto) 12.27 H (1.4-6.5) K/uL Lymph # (Auto) 1.85 (1.2-3.4) K/uL Hooker # (Auto) 1.10 H (0.24-0.82) K/uL Eos # (Auto) 0.00 (0-0.50) K/uL Baso # (Auto) 0.03 (0-0.2) K/uL Immature Gran # (Auto) 0.09 H (0.00-0.02) K/uL Sodium 134 L (136-145) mmol/L Potassium 3.6 (3.5-5.1) mmol/L Chloride 104 (98-107) mmol/L Carbon Dioxide 19 L (21-32) mmol/L Anion Gap 11 (3-11) BUN 11 (6-23) mg/dl Creatinine 0.53 L (0.6-1.2) mg/dl Est Cr Clr Drug Dosing Not Reportable Est GFR ( Amer) > 150.0 ml/min Est GFR (Non-Af Amer) 135.7 ml/min BUN/Creatinine Ratio 20.8 H (10-20) Glucose 70 (70-99(Fasting)) mg/dl Lactate 0.9 (0.4-2.0) mmol/L Calcium 8.9 (8.5-10.1) mg/dl Total Bilirubin 0.4 (0.2-1.0) mg/dl AST 13 (13-39) U/L ALT 8 (7-52) U/L Alkaline Phosphatase 164 H (34-104) U/L Total Protein 6.6 (6.0-8.3) gm/dl Albumin 3.3 L (3.4-5.0) gm/dl Globulin 3.3 (2.5-4.0) gm/dl Albumin/Globulin Ratio 1.0 (0.9-2) SARS-CoV-2, RNA, NAAT (NEGATIVE) Blood Type Antibody Screen 07/03/22 07/04/22 Range/Units 06:19 06:16 WBC 13.35 H (4.8-10.8) K/ul RBC 3.39 L (3.93-5.22) M/uL Hgb 11.3 L 10.2 L (12.0-16.0) g/dl Hct 31.8 L 29.2 L (34.1-44.9) % MCV 93.8 (80.0-100.0) fL MCH 33.3 (25.0-34.0) pg MCHC 35.5 (32.0-36.0) g/dL RDW Std Deviation 43.7 (36.4-46.3) fL RDW Coeff of Gareth 12.6 (11.5-14.5) % Plt Count 167 (130-400) K/uL MPV 8.7 L (9.4-12.3) fL Immature Gran % (Auto) 0.8 % Neut % (Auto) 80.0 % Lymph % (Auto) 13.1 % Hooker % (Auto) 5.9 % Eos % (Auto) 0.0 % Baso % (Auto) 0.2 % Neut # (Auto) 10.67 H (1.4-6.5) K/uL Lymph # (Auto) 1.75 (1.2-3.4) K/uL Hooker # (Auto) 0.79 (0.24-0.82) K/uL Eos # (Auto) 0.00 (0-0.50) K/uL Baso # (Auto) 0.03 (0-0.2) K/uL Immature Gran # (Auto) 0.11 H (0.00-0.02) K/uL Sodium (136-145) mmol/L Potassium (3.5-5.1) mmol/L Chloride (98-107) mmol/L Carbon Dioxide (21-32) mmol/L Anion Gap (3-11) BUN (6-23) mg/dl Creatinine (0.6-1.2) mg/dl Est Cr Clr Drug Dosing Est GFR ( Amer) ml/min Est GFR (Non-Af Amer) ml/min BUN/Creatinine Ratio (10-20) Glucose (70-99(Fasting)) mg/dl Lactate (0.4-2.0) mmol/L Calcium (8.5-10.1) mg/dl Total Bilirubin (0.2-1.0) mg/dl AST (13-39) U/L ALT (7-52) U/L Alkaline Phosphatase (34-104) U/L Total Protein (6.0-8.3) gm/dl Albumin (3.4-5.0) gm/dl Globulin (2.5-4.0) gm/dl Albumin/Globulin Ratio (0.9-2) SARS-CoV-2, RNA, NAAT (NEGATIVE) Blood Type Antibody Screen PE: General: Alert, orientedx3, NAD CVS: S1S2 RRR Lungs; CTAB Abd: soft, NT, ND, BS+, fundus firm, below Umbilicus Incision: Clean, dry, intact Perineum intact, Lochia rubra minimal Ext; NT, no edema AP: 22 yo s/p C Section, pod# 2 VSS Afebrile doing well Continue routine postop care Encourage ambulation, PO intake All questions were answered D/C home tomorrow Results & Data ([facility]) Vital Signs (Past 12 Hours) Vital Signs Temp Pulse Resp BP Pulse Ox O2 Del Method 07/04/22 04:15 36.5 C 80 18 105/64 98 Room Air 07/04/22 00:30 36.9 C 82 18 107/70 97 Room Air
[2022-07-04] MEDS: ESCITALOPRAM OXALATE 10 MG TAB PO SCH (22:00)
[2022-07-05] MEDS: oxyCODONE/ACETAMINOPHEN 5mg/325mg TAB PO PRN ×2 (02:20→08:29)
[2022-07-05] MEDS: IBUPROFEN 600 MG TAB PO PRN ×2 (02:21→08:29)
[2022-07-05] MEDS: SIMETHICONE 80 MG CHEW PO SCH (07:24)
[2022-07-05] MEDS: PRENATAL VITAMIN 1 TAB PO SCH (07:24)
[2022-07-05] MEDS: FERROUS SULFATE 325 MG TAB PO SCH (07:24)
[2022-07-05] MEDS: DOCUSATE SODIUM 100 MG CAP PO SCH (07:24)
--- NOTE | 2022-07-05 10:36 | Obstetrical Progress Note ---
Date of Service July 05, 2022 Assessment & Plan (1) delivery delivered: Plan c/sec day#3 pt doing well d/c home with instructions Subjective Ambulation: ambulating normally Voiding: no voiding problems Passing Gas:: Yes Diet Tolerance:: clear liquids Lochia:: Small Feeding Type:: breast feeding Review of Systems All systems reviewed & are unremarkable except as noted in HPI & below Physical Exam Constitutional WD/WN, vitals as above well developed and well nourished Eyes PERRL, conjunctivae normal, anicteric sclerae ENMT external ear and nose normal, oropharynx normal Neck trachea midline, no thyromegaly Respiratory normal respiratory effort, lungs clear to auscultation Cardiovascular RRR, no murmur, no edema Chest (Breasts) normal inspection/palpation of breasts Gastrointestinal (Abdomen) normal bowel sounds, soft, nontender, no hepatosplenomegaly Musculoskeletal no cyanosis or clubbing, extremities motor strength 5/5 Skin no rashes, warm and dry + incision (Clean,dry and intact) Neurologic patellar DTR's 2+ bilat, sensation intact Psychiatric A+Ox3, euthymic affect Genitourinary normal external appearance Lymphatic no cervical or axillary lymphadenopathy Results & Data ([facility]) Vital Signs (Past 12 Hours) Vital Signs Temp Pulse Pulse Resp BP Pulse Ox O2 Del Method 07/05/22 07:00 36.7 C 86 18 129/84 99 Room Air 07/04/22 23:30 36.6 C 80 18 103/55 L 98 Room Air
== END 2022-07-05 11:51 | disposition home or self-care (01) | DRG 788 ==
LOC: OPB 12:43 → 4S1 12:44 → 4E1 07-03 00:30

== ENCOUNTER 2023-12-10 05:27 | Inpatient (IN) ==
--- NOTE | 2023-11-28 16:28 | Anesthesiology Consultation ---
Date of Service November 28, 2023 Assessment & Plan (1) Encounter for pre-operative examination: Infectious disease screening: Per assessment on 11/28/23: No known infectious disease contacts or current infectious disease symptoms. No noted recent Covid positive test result. 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 Surgery Operation Date: 12/10/23 07:30 Proposed Procedures p Repeat Section - Jacob Mesa MD s Possible Bilateral Tubal Ligation - Jacob Mesa MD Height/Weight Height: 5 ft Weight: 81.647 kg Allergies Allergy/AdvReac Type Severity Reaction Status Date / Time adhesive tape AdvReac Skin Verified 11/28/23 16:25 redness Medications Home Medications Medication Instructions Recorded Confirmed Last Taken escitalopram oxalate 10 mg tablet 10 mg PO HS 03/26/22 11/28/23 10/30/23 ascorbic acid (vitamin C) 250 mg 250 mg PO [facility]HS 10/05/23 11/28/23 Unknown chewable tablet escitalopram oxalate 20 mg tablet 20 mg PO HS 10/05/23 11/28/23 10/30/23 ferrous sulfate 325 mg (65 mg 325 mg PO AMHS 10/05/23 11/28/23 Unknown iron) tablet (FeroSul) prenat.vits,lane,uum-ebdh-vecql 1 tab PO HS 11/28/23 11/28/23 Unknown Past Medical History Medical History Anxiety Depression Past Family History Family History Other Family history non-contributory Past Surgical History Surgical History History of anesthesia reaction Excessive fatigue post anesthesia x 1 month per patient, no further details provided History of section [place] teeth extracted Social History Smoking Status: Never smoker Do You Dip or Chew Tobacco: No Hx Alcohol Use: No Hx Substance Use: No substance use type: does not use Lab Results Anesthesia Preop Results Results Anesthesia Widget: WBC 9.68 K/ul (4.8-10.8) 10/05/23 Hgb 12.0 g/dl (12.0-16.0) 10/05/23 Hct 34.9 % (37.0-47.0) L 03/03/24 Plt 269 K/uL (130-400) 10/05/23 Na 135 mmol/L (136-145) L 10/05/23 K 3.5 mmol/L (3.5-5.1) 10/05/23 Cl 105 mmol/L (98-107) 10/05/23 CO2 22 mmol/L (21-32) 10/05/23 BUN 10 mg/dl (6-23) 10/05/23 Creat 0.59 mg/dl (0.6-1.2) L 10/05/23 Glucose Level 66 mg/dl (70-99(Fasting)) L 10/05/23 PT 9.8 Seconds (9.0-12.0) 10/05/23 PTT 26 Seconds (21-31) 10/05/23 INR 0.9 (0.9-1.1) 10/05/23 Urine Color Yellow 10/05/23 Urine Appearance Clear (Clear) 10/05/23 Urine pH 6.0 (4.5-7.5) 10/05/23 Urine Specific [place] 1.020 (1.000-1.030) 10/05/23 Urine Protein Negative (Negative) 10/05/23 Urine Glucose (UA) Negative (Negative) 10/05/23 Urine Ketones Negative (Negative) 10/05/23 Urine Blood Negative (Negative) 10/05/23 Urine Nitrite Negative (Negative) 10/05/23 Urine Bilirubin Negative (Negative) 10/05/23 Urine Urobilinogen Negative (Negative) 10/05/23 Urine Leukocyte Esterase Negative (Negative) 10/05/23 Coronavirus OC43 (PCR) Not Detected (NotDetected) 10/05/23 Coronavirus HKU1 (PCR) Not Detected (NotDetected) 10/05/23 Coronavirus 229E (PCR) Not Detected (NotDetected) 10/05/23 COVID-19 PCR Not Detected (NotDetected) 10/05/23 Coronavirus NL63 (PCR) Not Detected (NotDetected) 10/05/23 Testing Electrocardiogram Date: 10/05/23 SR with short [place] at 87bpm. "Otherwise normal ECG" Chest X-Ray Date: 10/05/23 FINDINGS: Cardiomediastinal and hilar silhouettes are within normal limits. No pneumothorax, pleural or airspace consolidation. Bones appear grossly intact. IMPRESSION: No acute process.
[2023-12-10 06:00] LABS: Hematocrit (blood only) 36.5 % (37.0-47.0); Hemoglobin 12.1 g/dl (12.0-16.0); Mean Corpuscular Hemoglobin 31.2 pg (25.0-34.0); Mean Corpuscular Hgb Conc 33.2 g/dL (32.0-36.0); Mean Corpuscular Volume 94.1 fL (80.0-100.0); Mean Platelet Volume 9.2 fL (9.4-12.4); Platelet Count 215 K/uL (130-400); RDW Coefficient of Variation 13.2 % (11.5-14.5); RDW Standard Deviation 45.7 fL (36.4-46.3); Red Blood Count 3.88 M/uL (4.20-5.40); White Blood Count 10.79 K/ul (4.8-10.8)
[2023-12-10] MEDS: LACTATED RINGER'S 1,000 ML IV SCH (06:17)
[2023-12-10] MEDS ORDERED: SODIUM CHLORIDE 0.9% 250 ML IV PRN (06:21)
--- NOTE | 2023-12-10 06:31 | History & Physical Report ---
Date of Service December 10, 2023 Assessment & Plan (1) 39 weeks gestation of : Plan: Admit, routine labs, 2 g Ancef Patient to sign consents with delivering provider this morning (2) delivery delivered: (3) Depression affecting in third trimester, antepartum: Plan: Continue citalopram 30 mg daily (4) Antepartum anemia complicating in third trimester: Plan: Admission H&H 12.1/36.5% (5) Short interval between pregnancies complicating in third trimester, antepartum: Admission and Anticipated Discharge Date Admission Date: December 10, 2023 History of Present Illness Chief Complaint: C scetion Primary Care Provider: Oscar Estrada DO Patient is a pleasant 23-year-old -0-0-1 at 39 weeks and 1 day dated by last menstrual period consistent with 9-week ultrasound who presents for repeat and possible tubal ligation. Patient denies any leaking or bleeding. Notes good movement. Has irregular contractions. Otherwise feeling well. has been complicated by history of a in 2021, depression, short interval , antepartum anemia Allergies Allergy/AdvReac Type Severity Reaction Status Date / Time adhesive tape AdvReac Intermediate Skin Verified 12/10/23 05:52 redness Home Medications Medication Instructions Recorded Confirmed Type escitalopram oxalate 10 mg tablet 10 mg PO HS 03/26/22 12/10/23 History escitalopram oxalate 20 mg tablet 20 mg PO HS 10/05/23 11/28/23 History prenat.vits,lane,vrc-vwlc-amfts 1 tab PO HS 11/28/23 12/10/23 History Patient History Medical History (Updated 12/10/23 @ 06:28 by Yoselin Jorge MD, PhD) Migraine Anemia Depression Anxiety Surgical History History of section [place] teeth extracted Family History Other Family history non-contributory Social History Smoking Status: Former smoker Tobacco Type: Cigarettes and E-cigarettes / Vaping Second Hand Exposure: No; Do You Dip or Chew Tobacco: No; Tobacco Cessation Education Requested by Patient: No Hx Alcohol Use: No Hx Substance Use: No Preferred Language: Zambian Communication Ability: Effective Emergency Medicine Specialist Required: No Beliefs That Will Affect Care: None marital status: Single Current Living Situation: Parent and Family Current Living Situation Comment: Mother, father, brother, [place] daughter Other Information That Helps Us Care for You: No Feels Safe at Home: Yes Safety Concerns: Feels Safe At This Time Assistive Devices: Glasses OB History WINE SPECIALIST History See record Review of Systems All systems reviewed & are unremarkable except as noted in HPI & below Physical Exam Constitutional: WD/WN, vitals as above Respiratory: normal respiratory effort, lungs clear to auscultation Cardiovascular: RRR, no murmur, no edema Gastrointestinal (Abdomen): normal bowel sounds, soft, nontender, no hepatosplenomegaly gravid Results & Data Vital Signs (Past 12 Hours) Vital Signs Temp Pulse Resp BP 12/10/23 05:58 101 H 100/65 12/10/23 05:54 37.5 C 18 Code Status & VTE Plan VTE Prophylaxis Plan VTE Prophylaxis will be ordered: No Reason for no VTE drug order: Treatment not indicated Monitoring External Monitor heart tracing: Baseline 120, moderate variability, positive accelerations no decelerations, category 1 tracing Tocodynamometer Contractions every 8 to 10 minutes
[2023-12-10] MEDS: CITRIC ACID/SODIUM CITRATE 15 ML UDC PO SCH (08:41)
[2023-12-10] MEDS ORDERED: fentaNYL citrate PF 100 MCG/2 ML VIAL ONE (09:04)
[2023-12-10] MEDS ORDERED: DEXAMETHASONE SOD INJ 4 MG/ML VIAL ONE (09:04)
[2023-12-10] MEDS ORDERED: MoRPHine SULFATE PF 1 MG/ML 10 ML AMP/VIAL ONE (09:04)
[2023-12-10] MEDS ORDERED: ONDANSETRON INJ 2 MG/ML 2 ML VIAL ONE (09:04)
[2023-12-10] MEDS ORDERED: KETOROLAC 30 MG/ML VIAL ONE (09:04)
[2023-12-10] MEDS ORDERED: GLYCOPYRROLATE 0.2 MG/ML VIAL ONE (09:04)
[2023-12-10] MEDS ORDERED: OXYTOCIN 10 UNITS/ML VIAL ONE (09:04)
--- NOTE | 2023-12-10 09:19 | History & Physical Bridge Note ---
Date of Service December 10, 2023 History & Physical Bridge Note I have examined the patient, reviewed the History & Physical and in the interval since the performance of the History & Physical I have noted the following changes of clinical significance: no changes noted Patient desires permanent sterilization. She states she is 100% sure with her decision. She signed consent in the office. I discussed with the patient that she is young and may regret in the future. Her kids may and she may get again and desire another . We discussed reversible contraceptive options. she states hormonal contraceptive methods changes her mood. I reminded her there are Nonhormonal and reversible contraceptive options which are as effective as tubal sterilization and long-term like ParaGard IUD. I gave her time to think before she signed the consent here. she and her mom discussed between each other for a while and she decided to sign the consent for tubal sterilization. All questions were answered.
[2023-12-10] MEDS: ceFAZolin 2000MG 2,000 MG/15 ML SYR IV SCH (10:26)
[2023-12-10] MEDS ORDERED: ePHEDrine sulfate 50 MG/ML AMP IV PRN (11:31)
[2023-12-10] MEDS ORDERED: NALOXONE HCL 0.4 MG/1 ML VIAL/CARP IV PRN (11:31)
[2023-12-10] MEDS ORDERED: MEPERIDINE HCL 25 MG/ML CARP/VIAL IV PRN (11:31)
[2023-12-10] MEDS ORDERED: PROMETHAZINE HCL 6.25 MG in SODIUM CHLORIDE 0.9% 50 ML IV PRN (11:31)
[2023-12-10] MEDS ORDERED: HYDROmorphone INJ 0.5 MG/0.5 ML SYR IV PRN (11:31)
[2023-12-10] MEDS ORDERED: ONDANSETRON INJ 2 MG/ML 2 ML VIAL IV PRN ×2 (11:31→12:12)
[2023-12-10] MEDS ORDERED: diphenhydrAMINE 50 MG/ML VIAL IV PRN (11:31)
[2023-12-10] MEDS ORDERED: NALOXONE HCL 1 MG in SODIUM CHLORIDE 0.9% 1,000 ML IV PRN (11:31)
[2023-12-10] MEDS ORDERED: METOCLOPRAMIDE HCL 20 MG in SODIUM CHLORIDE 0.9% 50 ML IV PRN (11:31)
[2023-12-10] MEDS ORDERED: LACTATED RINGER'S 500 ML IV PRN (11:31)
[2023-12-10] MEDS ORDERED: NALBUPHINE HCL 5 MG in SYRINGE 0 ML IV PRN (11:31)
[2023-12-10] MEDS ORDERED: NALOXONE HCL 0.08 MG in SYRINGE 1.8 ML IV PRN (11:31)
[2023-12-10] MEDS ORDERED: DROPERIDOL 5 MG/2 ML VIAL IV PRN (11:31)
[2023-12-10] MEDS: OXYTOCIN 10 UNITS/ML 10ML VIAL IM ONE (11:37)
[2023-12-10] MEDS ORDERED: NO NARCOTICS OR SEDATIVES SCH (11:45)
[2023-12-10] MEDS ORDERED: DC INTRASPINAL MORPHINE SCH (11:45)
[2023-12-10] MEDS ORDERED: SENNA 8.6 MG TAB PO PRN (12:12)
[2023-12-10] MEDS ORDERED: HYDROCORTISONE ACETATE 25 MG SUPP PR PRN (12:12)
[2023-12-10] MEDS ORDERED: BENZOCAINE 20% SPRY 85 APPLN/85 GM CAN EXT PRN (12:12)
[2023-12-10] MEDS ORDERED: MAGNESIUM HYDROXIDE SUSP 30 ML UDC PO PRN (12:12)
--- NOTE | 2023-12-10 12:22 | Anesthesiology Progress Note ---
Date of Service December 10, 2023 Anesthesia Post Procedure Vital Signs Vital Signs: Temp Pulse Resp BP 12/10/23 09:57 18 12/10/23 09:57 36.9 C 18 12/10/23 09:56 93 H 120/80 12/10/23 05:58 101 H 100/65 12/10/23 05:54 37.5 C 18 Transfer of Care Handoff Completed per policy Notes Mental Status: alert / awake / arousable Patient Amnestic to Procedure: Yes Nausea / Vomiting: adequately controlled Pain: adequately controlled Airway Patency, RR, SpO2: stable & adequate BP & HR: stable & adequate Hydration State: stable & adequate Neuraxial Anesthesia: was administered and sensory block is resolving Anesthetic Complications: no major complications apparent and Pt Satisfied with anesthetic care Notes: Post op vitals: BP 129/60 HR 76 SpO2 T 36.8
--- NOTE | 2023-12-10 12:23 | Operative Report ---
Post Operative Report Pre & Post Diagnosis Operation Date: 12/10/23 07:30 Pre-Op Diagnosis: 1. Term 2. Previous c/section 3. Desire repeat c/section 4. Desires bilateral tubal ligation Post-Op Diagnosis: Same I identified the patient and participated in the time-out.: Yes Procedure Operation Date: 12/10/23 07:30 Actual Procedures p Repeat Section with the of a live female child at 1105. - Taya Walker MD s With Bilateral Tubal Sterilization - Taya Walker MD Surgeon Taay Walker MD Wood Barrel Reconditioner JAZMIN Herring Estimated Blood Loss 955 Findings Consistent with Post-Op Diagnosis Baby was a viable female infant delivered at 11:05 AM in cephalic presentation, Apgars were 8/8, weight 3255 g Maternal findings: normal uterus, fallopian tubes and ovaries Specimens placenta Anesthesia Type Spinal Complications none Disposition Accompanied Patient To Recovery: Yes Indications patient is a 23-year-old -0-0-1 at 39 weeks of gestation who has a history of prior , was scheduled for repeat section with bilateral tubal sterilization patient declined TOLAC/, nonsurgical reversible contraception options despite extensive counseling. She has signed an informed consent for repeat C- section and bilateral tubal sterilization. Description of Procedure Patient was taken to operating room where a spinal anesthesia was given without difficulty. She was placed in dorsal supine position with a leftward tilt. She was prepared and draped in usual sterile fashion. A financial skin incision was made and carried through to the underlying layer of fascia with the Bovie. Fascia was incised in the midline and incision was extended laterally with the help of Meza scissors. Then the upper aspect of the fascial incision was grasped with 2 Ashley clamps elevated the underlying rectus muscles were dissected off sharply with Meza scissors. Same thing was done on the lower incision. Then the muscles were in the midline, peritoneum was identified grasped with 2 pickups and entered sharply with Metzenbaum scissors. Peritoneal incision was extended superior and inferiorly with good visualization of the bladder. The bladder blade was inserted. Vesicouterine peritoneum was identified, grasped with pickups and entered sharply with Metzenbaum scissors, bladder flap was created digitally and bladder blade was reinserted. Uterus was incised in transverse fashion, incision was extended laterally with our appendage scissors, membranes were ruptured and clear fluid was obtained. Baby head was delivered without difficulty, followed by shoulders and whole body. . Mouth and nose were suctioned there was dried on the field he was vigorously crying and moving. The cord was clamped times and cut at 1 minute delay and then the was handed off to the pediatric team. Then the placenta was delivered manually as intact and complete. Uterus was externalized and cleared of all clots and debris's. Uterine incision was repaired with 0 Vicryl in a running locked fashion, second umbricating layer was placed with the same suture in running locked fashion. Excellent hemostasis achieved. Cul-de-sac and the pelvis was irrigated with warm normal saline and suctioned. Incision was checked of anesthetic again. Both fallopian tubes were identified and grasped with Wiley clamps and then hand-held LigaSure device was used to coagulate the fallopian tubes from the avascular side. About 3 to 4 cm length of tube was coagulated and cut bilaterally. And it was hemostatic. Uterus was returned to the abdomen, parietal peritoneum was reapproximated with 3-0 Vicryl in a running fashion and the muscles were reapproximated in the same suture in a running fashion. All of the fascia and rectus muscles were hemostatic. Rectus fascia was reapproximated with 3-0 Vicryl starting from both columns meeting in the mi dline. Subcuticular fat tissue was brought together with 2-0 Vicryl in a running fashion, skin was closed with 4-0 Monocryl in a subcuticular cuticular fashion. The mom and baby tolerated procedure well. Sponge needle instrument count was correct x3. No complications happened, I was present during whole procedure. My doctor assistant was needed for retraction, hemostasis and aid during delivery of infant I attest to the content of the Intraoperative Record and any orders documented therein. Any exceptions are noted below.
[2023-12-10] MEDS: ARISTA ABSORBABLE HEMOSTAT 3GM TOP ONE (12:33)
[2023-12-10] MEDS: ACETAMINOPHEN 1,000 MG/100 ML VIAL IV PRN (14:15)
[2023-12-10] MEDS: SIMETHICONE 80 MG CHEW PO SCH (14:20)
[2023-12-10] MEDS ORDERED: MEPERIDINE HCL 50 MG/ML CARP IV PRN (15:00)
[2023-12-10] MEDS: OXYTOCIN 20 UNITS/LR 1,002 ML IV SCH (15:20)
[2023-12-10] MEDS ORDERED: MEPERIDINE HCL 50 MG/ML CARP IV SCH (15:30)
[2023-12-10] MEDS: ESCITALOPRAM OXALATE 10 MG TAB PO SCH (21:12)
[2023-12-10] MEDS: ESCITALOPRAM OXALATE 20 MG TAB PO SCH (21:12)
[2023-12-10] MEDS: DOCUSATE SODIUM 100 MG CAP PO SCH (21:12)
[2023-12-11] MEDS: KETOROLAC 30 MG/ML VIAL IV PRN (01:04)
[2023-12-11] MEDS ORDERED: oxyCODONE/ACETAMINOPHEN 5mg/325mg TAB PO PRN (05:33)
[2023-12-11] MEDS ORDERED: PROMETHAZINE HCL 25 MG in SODIUM CHLORIDE 0.9% 50 ML IV PRN (05:33)
[2023-12-11] MEDS ORDERED: diphenhydrAMINE Capsule 25 MG CAP PO PRN (05:33)
[2023-12-11] MEDS ORDERED: diphenhydrAMINE 50 MG/ML VIAL IV PRN (05:33)
[2023-12-11 06:06] LABS: Basophils # (auto) 0.04 K/uL (0.00-0.20); Basophils % (auto) 0.3 %; Hematocrit (blood only) 29.8 % (37.0-47.0); Hemoglobin 10.3 g/dl (12.0-16.0); Immature Granulocytes # (auto) 0.15 K/uL (0.01-0.20); Immature Granulocytes % (auto) 1.1 %; Lymphocytes % (auto) 15.7 %; Mean Corpuscular Hemoglobin 31.6 pg (25.0-34.0); Mean Corpuscular Hgb Conc 34.6 g/dL (32.0-36.0); Mean Corpuscular Volume 91.4 fL (80.0-100.0); Mean Platelet Volume 9.2 fL (9.4-12.4); Monocytes # (auto) 0.91 K/uL (0.11-0.59); Monocytes % (auto) 6.5 %; Neutrophils # (auto) 10.72 K/uL (1.40-6.50); Neutrophils % (auto) 76.4 %; Platelet Count 168 K/uL (130-400); RDW Coefficient of Variation 12.9 % (11.5-14.5); RDW Standard Deviation 42.6 fL (36.4-46.3); Red Blood Count 3.26 M/uL (4.20-5.40); White Blood Count 14.02 K/ul (4.8-10.8)
[2023-12-11] MEDS: FERROUS SULFATE 325 MG TAB PO SCH (08:12)
[2023-12-11] MEDS: MoRPHine SULFATE PF 1 MG/ML 10 ML AMP/VIAL INT SPINAL ONE (08:14)
[2023-12-11] MEDS: SODIUM CHLORIDE 0.9% 1,000 ML IV SCH (08:15)
[2023-12-11] MEDS: PRENATAL VITAMIN 1 TAB PO SCH (08:22)
[2023-12-11] MEDS: ACETAMINOPHEN 325 MG TAB PO PRN (08:23)
[2023-12-11] MEDS: IBUPROFEN 600 MG TAB PO PRN (08:23)
[2023-12-11] MEDS ORDERED: MEPERIDINE HCL 50 MG/ML CARP IV PRN (08:29)
[2023-12-11] MEDS ORDERED: Nursing to Pharmacy Communication SCH (08:30)
--- NOTE | 2023-12-11 11:55 | Obstetrical Progress Note ---
Date of Service December 11, 2023 Assessment & Plan Admission and Anticipated Discharge Date Admission Date: December 10, 2023 Subjective Patient is seen and examined. She feels well, no complaints. Pain is under control with oral meds. Ambulating without dizziness Voiding without difficulty Tolerating regular diet with out N&V Flatus + BM neg Bleeding is minimal No fever/ chills/ CP/ SOB/ N&V/ Leg pain Bottle feeding without problems Vital Signs Temp Pulse Resp BP Pulse Ox O2 Del Method 12/11/23 05:40 36.5 C 76 18 110/71 100 Room Air 12/11/23 05:40 18 100 12/11/23 05:03 16 97 12/11/23 04:00 16 97 12/11/23 03:25 16 98 12/11/23 02:34 16 98 12/11/23 01:36 18 100 12/11/23 00:35 18 100 12/11/23 00:35 36.6 C 98 H 18 112/73 100 Room Air Lab Results 12/10/23 12/10/23 12/11/23 Range/Units 05:38 06:43 05:26 WBC 10.79 14.02 H (4.8-10.8) K/ul RBC 3.88 L 3.26 L (4.20-5.40) M/uL Hgb 12.1 10.3 L (12.0-16.0) g/dl Hct 36.5 L 29.8 L (37.0-47.0) % MCV 94.1 91.4 (80.0-100.0) fL MCH 31.2 31.6 (25.0-34.0) pg MCHC 33.2 34.6 (32.0-36.0) g/dL RDW Std Deviation 45.7 42.6 (36.4-46.3) fL RDW Coeff of Gareth 13.2 12.9 (11.5-14.5) % Plt Count 215 168 (130-400) K/uL MPV 9.2 L 9.2 L (9.4-12.4) fL Immature Gran % (Auto) 1.1 % Neut % (Auto) 76.4 % Lymph % (Auto) 15.7 % Kemper % (Auto) 6.5 % Eos % (Auto) 0.0 % Baso % (Auto) 0.3 % Neut # (Auto) 10.72 H (1.40-6.50) K/uL Lymph # (Auto) 2.20 (1.20-3.40) K/uL Kemper # (Auto) 0.91 H (0.11-0.59) K/uL Eos # (Auto) 0.00 (0.00-0.50) K/uL Baso # (Auto) 0.04 (0.00-0.20) K/uL Immature Gran # (Auto) 0.15 (0.01-0.20) K/uL RPR Nonreactive (Nonreactive) Blood Type A Positive Antibody Screen NEGATIVE Crossmatch See Detail PE: General: Alert, orientedx3, NAD CVS: S1S2 RRR Lungs; CTAB Abd: soft, NT, ND, BS+, fundus firm, below Umbilicus Incision/ Dressing: Clean, dry, intact Perineum intact, Lochia rubra minimal Ext; NT, no edema AP: 23 yo s/p RC Section+ BTL, pod# 1 VSS Afebrile doing well Continue routine postop care Encourage ambulation, PO intake All questions were answered D/C home TOMORROW Results & Data Vital Signs (Past 12 Hours) Vital Signs Temp Pulse Resp BP Pulse Ox O2 Del Method 12/11/23 05:40 36.5 C 76 18 110/71 100 Room Air 12/11/23 05:40 18 100 12/11/23 05:03 16 97 12/11/23 04:00 16 97 12/11/23 03:25 16 98 12/11/23 02:34 16 98 12/11/23 01:36 18 100 12/11/23 00:35 18 100 12/11/23 00:35 36.6 C 98 H 18 112/73 100 Room Air
[2023-12-11] MEDS: bisacodyL 5 MG TABEC PO SCH (19:33)
[2023-12-11] MEDS: LACTATED RINGER'S 1,000 ML IV SCH (19:34)
[2023-12-11] MEDS: HYDROCORTISONE 2.5% CR 30 GM TUBE EXT SCH (20:22)
[2023-12-12] MEDS: DIPHTHER/TETAN/PERTUS Vaccine (Tdap, Adol/Adult) 0.5mL IM ONE (04:22)
[2023-12-12 06:10] LABS: Hematocrit (blood only) 29.5 % (37.0-47.0)
--- NOTE | 2023-12-12 10:27 | Obstetrical Progress Note ---
Date of Service December 12, 2023 Subjective Ambulation: ambulating normally Voiding: no voiding problems Passing Gas:: Yes Diet Tolerance:: regular diet Lochia:: Small Feeding Type:: breast feeding Current Pain Level(1-10): 0 doing well Physical Exam Constitutional WD/WN, vitals as above Cardiovascular RRR, no murmur, no edema Gastrointestinal (Abdomen) Inspection/Auscultation: abdomen normal to inspection and + abdominal surgical incision Skin no rashes, warm and dry Neurologic patellar DTR's 2+ bilat, sensation intact Results & Data Vital Signs (Past 12 Hours) Vital Signs Temp Pulse Resp BP Pulse Ox O2 Del Method 12/12/23 07:45 36.7 C 72 16 105/71 98 Room Air 12/12/23 03:07 36.4 C L 73 18 106/65 98 Room Air 12/12/23 00:25 36.7 C 71 18 107/75 99 Room Air Laboratory Results 12/10/23 12/10/23 12/11/23 05:38 06:43 05:26 WBC 10.79 14.02 H RBC 3.88 L 3.26 L Hgb 12.1 10.3 L Hct 36.5 L 29.8 L MCV 94.1 91.4 MCH 31.2 31.6 MCHC 33.2 34.6 RDW Std Deviation 45.7 42.6 RDW Coeff of Gareth 13.2 12.9 Plt Count 215 168 MPV 9.2 L 9.2 L Immature Gran % (Auto) 1.1 Neut % (Auto) 76.4 Lymph % (Auto) 15.7 Esmeralda % (Auto) 6.5 Eos % (Auto) 0.0 Baso % (Auto) 0.3 Neut # (Auto) 10.72 H Lymph # (Auto) 2.20 Esmeralda # (Auto) 0.91 H Eos # (Auto) 0.00 Baso # (Auto) 0.04 Immature Gran # (Auto) 0.15 RPR Nonreactive Blood Type A Positive Antibody Screen NEGATIVE Crossmatch See Detail 12/12/23 05:35 WBC RBC Hgb 10.0 L Hct 29.5 L MCV MCH MCHC RDW Std Deviation RDW Coeff of Gareth Plt Count MPV Immature Gran % (Auto) Neut % (Auto) Lymph % (Auto) Esmeralda % (Auto) Eos % (Auto) Baso % (Auto) Neut # (Auto) Lymph # (Auto) Esmeralda # (Auto) Eos # (Auto) Baso # (Auto) Immature Gran # (Auto) RPR Blood Type Antibody Screen Crossmatch
[2023-12-12] MEDS ORDERED: bisacodyL 10 MG SUPP PR PRN (12:12)
== END 2023-12-12 12:30 | disposition home or self-care (01) | DRG 785 ==
LOC: 4S1 05:27 → EDSTATUS 07:30 → 4E2 15:45
PROC: M.PPTLD (2023-12-10 07:30)